=== PATIENT | male | born 1955 | race Caucasian/White ===

== ENCOUNTER 2020-02-28 11:30 | Outpatient (RCR) | payer BC, MEDICARE, SELFPAY | END 2020-03-06 23:59 | LOC: NS 11:30 | PROVIDERS: Visit Provider Student in an Organized Health Care Education/Training Program | DX: Z71.3 Dietary counseling and surveillance (principal); E66.01 Morbid (severe) obesity due to excess calories; Z68.37 Body mass index [BMI] 37.0-37.9, adult; E11.65 Type 2 diabetes mellitus with hyperglycemia | CPT/HCPCS: 97802; 97803 ==

== ENCOUNTER 2020-03-13 11:01 | Outpatient (RCR) | payer BC, MEDICARE, SELFPAY | END 2020-03-13 23:59 | disposition home or self-care (01) | LOC: NS 11:01 | PROVIDERS: Visit Provider Student in an Organized Health Care Education/Training Program | DX: Z71.3 Dietary counseling and surveillance (principal); E66.01 Morbid (severe) obesity due to excess calories; Z68.37 Body mass index [BMI] 37.0-37.9, adult; E11.65 Type 2 diabetes mellitus with hyperglycemia | CPT/HCPCS: 97803 ==

== ENCOUNTER 2022-09-05 14:51 | Observation (INO) | payer BC, MEDICARE, SELFPAY ==
--- NOTE | 2022-08-28 09:11 | RAD_ITS ---
STUDY: X-RAY CHEST REASON FOR EXAM: Male, 67 years old. Preop for hip surgery TECHNIQUE: PA and 2 lateral views of the chest. COMPARISON: None. FINDINGS: The lungs are clear and expanded. There is no demonstrated pleural abnormality. Normal size heart. Normal mediastinum and balbina. Normal visualized pulmonary arteries. Normal visualized aortic arch and descending thoracic aorta. Normal visualized thoracic spine. Normal visualized ribs, clavicles, and shoulders. There is no demonstrated abnormality of the visualized soft tissue structures of the upper abdomen. RAD/Chest PA and Lateral IMPRESSION: No acute pulmonary process Electronically Signed: Ernst Aparicio MD at 11:11 EDT ,
[2022-08-28 10:36] LABS: Partial Thromboplast Time 29.9 Seconds (24.1-36.2); Prothrombin Time (Protime)PT. 13.2 SECONDS (11.7-14.9)
[2022-09-05] VITALS (13 sets, daily range): BP systolic 116–158; BP diastolic 65–143; PULSE 72–100; RESP 16–18; TEMP 36.4–37; O2SAT 92–100; BMI 39.4; BMI 40.6
--- NOTE | 2022-09-05 07:00 | RAD_ITS ---
XR Spine Lumbar 2 or 3 Views INDICATION:67 years old Male presenting with L5-S1 posterior fusion. TECHNIQUE: Fluoroscopic images are submitted from a procedure. Fluoro time: 125.4 seconds Images:8 Cumulative dose: 95.98 mGy FINDINGS: Intraoperative fluoroscopic images of L5-S1 discectomy and posterior spinal fusion. No radiologist was present for this procedure. Please see procedure note for further details. Electronically Signed: Beck Askew MD at 5:37 EDT , RAD/Lumbar Spine 2 or 3 Views IMPRESSION: undefined
[2022-09-05] MEDS: Lactated Ringers 1,000 ML 15 ML IV (07:17)
[2022-09-05 07:26] LABS: Bedside Glucose 148 mg/dL (74-106)
--- NOTE | 2022-09-05 07:37 | OP.PCM_ITS ---
Problems Associated Problem List Diagnoses (1) Lumbar spondylosis: Report of Operation Date of Procedure: 09/05/22 Pre-Operative Diagnosis: 1. Lumbar stenosis L5-S1 with spondylosis 2. Lumbar degenerative disc disease L5-S1 3. Lumbar spondylolisthesis L5-S1 Post-Operative Diagnosis: 1. Lumbar stenosis L5-S1 with spondylosis 2. Lumbar degenerative disc disease L5-S1 3. Lumbar spondylolisthesis L5-S1 Surgery/Procedure Performed:: 1. L5-S1 posterior lumbar interbody fusion 2. Insertion of intervertebral biomechanical device x1 3. Structural allograft for spinal fusion 4. L5 bilateral laminectomies, foraminotomies, facetectomies, decompression of bilateral nerve roots 5. S1 bilateral laminectomies, foraminotomies, facetectomies, decompression of bilateral nerve roots 6. L5-S1 posterolateral fusion 7. Pedicle screw fixation 8. Local autograft for spinal fusion 9. Neuro monitoring bilateral upper and bilateral lower extremities Description of Surgical Findings:: The patient is a 67-year-old male with intractable back and leg pain. Image studies confirm the above diagnoses. He has failed conservative treatments to include medications physical therapy and injections. The patient opted for operative intervention understanding the risk to include but not limited to infection, bleeding, damage to nerves arteries and veins, possibility of spinal fluid leak, nonunion, hardware failure, continued pain, need for further surgery, deep vein thrombosis, pulmonary embolism, heart attack, risk of stroke or . The patient was seen and examined in the preoperative holding area. There he received preoperative IV antibiotics Ancef and was then transferred to the operative suite. Once in the operative suite after general endotracheal anesthesia was established the patient was transferred to the [place] operating table in the prone position. All bony prominences were padded accordingly. The lumbar spine was prepped and draped in a standard surgical fashion. Bear hugger's were not turned on until the drapes were placed and sealed with Ioban. Midline incision was made and taken to the lumbodorsal fascia. The fascia was incised and subperiosteal dissection was taken down to the level of the transverse processes and sacral ala of L5 and S1 bilaterally. Deep retractors were placed. A bone scalpel was used to make cuts in the lamina and then a series of rongeurs and Kerrisons were used removing the spinous process and lamina at L5. Then facetectomies of greater than 50% were performed as well as foraminotomies decompressing the bilateral nerve roots. Given the severity of the stenosis I needed to perform wide bilateral laminectomies and near complete facetectomies in order to decompress the neural elements thus creating instabi lity necessitating the fusion. The dura and nerve roots were retracted medially. A 15 blade scalpel was used to make an annulotomy at L5-S1. Endplate elevators, curettes, and pituitaries were utilized to remove disc material. Endplates were prepared with a rasp. An appropriate sized intervertebral peek cage device measuring 8 mm was packed with morselized cancellous allograft and impacted into position completing the posterior lumbar interbody fusion at the L5-S1 level. Starting points for the screws were found at the junction of the superior articular process and transverse processes and sacral ala of L5 and S1 bilaterally. A power bur was used for the starting point. Pedicle probes were placed bilaterally and then 6.5 x 55 mm screws were placed bilaterally at L5 and 6.5 x 45 mm screws were placed bilaterally at S1. The screws were tested with intraoperative neurophysiologic monitoring and tested within normal limits. Connecting rods were applied and secured with set screws. I then proceeded with the posterior lateral fusion. This was accomplished by decorticating the transverse processes and sacral ala bilaterally at L5 and S1. This decorticated bone was then bridged with local autograft from the decompression as well as morselized cancellous allograft therefore completing the posterior lateral fusion at L5-S1. The incision was thoroughly irrigated. Tisseel was placed over the dura as a hemostatic agent. A deep drain was placed. The fascia was closed with #1 Vicryl, subcutaneous with 2-0 Vicryl and skin with 2-0 nylon. A sterile dressing was applied with 4 x 4's ABD and tape. Sponge instrument needle counts were correct at the end of the case. Neurophysiologic monitoring was maintained at baseline throughout the duration of the case. The patient was extubated and taken to the PACU without incident. Surgeon: Jose Alfredo Arvizu Type of Anesthesia: General Drains: Hemovac Estimated Blood Loss (mL): 1000 cc. Fluids Replaced: 2500 cc. Grafts/Implants Used: Unified spine, talos Complications None Admit VTE Documentation VTE Present on Admission: No
--- NOTE | 2022-09-05 07:37 | PCM.PN.ORT ---
Subjective Subjective The patient was seen and examined postoperatively in the PACU. He is resting comfortably. His pain is controlled. He denies any acute numbness tingling or weakness Objective Data Objective Data Vital Signs: Vital Signs Temp Pulse Resp BP Pulse Ox O2 Del Method 98.6 F 72 16 137/65 H 93 Room Air 09/05/22 07:10 09/05/22 07:10 09/05/22 07:10 09/05/22 07:10 09/05/22 07:10 09/05/22 07:10 Oxygen Delivery Method Room Air Weight: 255 lb 11.779 oz Body Mass Index (BMI) 39.4 Lab / Micro Data Labs: Laboratory Results - last 24 hr 09/05/22 07:06: POC Glucose 148 H Physical Exam Const alert, oriented x3 and no apparent distress General Appearance: cooperative, comfortable and well kempt HEENT normocephalic and head/scalp atraumatic Eyes EOMs intact bilaterally and conjunctivae normal Neck full ROM General: normal visual inspection Chest inspection of chest normal and palpation of chest normal Resp normal respiratory effort and normal air movement Cardio regular rate, regular rhythm and peripheral pulses 2+ throughout GI soft to palpation, non-tender and non-distended Back/Spine Back/Spine Narrative: Dressing clean dry and intact. Drain in place and functioning with small amount of serosanguinous fluid present Cervical Spine: cervical ROM normal Thoracic Spine / Upper Back: normal to inspection Lumbar Spine / Lower Back: normal to inspection Extremity normal to inspection, full ROM, normal capillary refill and no calf tenderness Skin no rashes or lesions noted General Skin Exam: no breakdown Neuro oriented x3, CN's II-XII intact bilaterally, moves all extremities, no focal motor deficits, no sensory deficits noted and deep tendon reflexes 2+ bilaterally Motor Exam: muscle tone normal throughout Assessment & Plan Assessment/Plan (1) Lumbar spondylosis: PLAN: Okay to admit to floor See orders Discharge planning, likely home tomorrow
--- NOTE | 2022-09-05 07:37 | PCM.DC.SUM ---
Providers Date of Admission: 09/05/22 Primary Care Physician: Dr. Giacomo Simmons DO Reason For Visit: LUMBAR 5-SACRAL 1 POSTERIOR LUMBAR INTERBODY FUSIO Medications at Discharge Home Medications amlodipine 5 mg tablet 5 mg PO DAILY 08/27/22 atorvastatin 80 mg tablet 80 mg PO DAILY 08/27/22 dulaglutide 1.5 mg/0.5 mL subcutaneous pen injector (Trulicity) 1.5 mg subcut QWEEK 08/27/22 famotidine 40 mg tablet 40 mg PO DAILY 08/27/22 glipizide 10 mg tablet 10 mg PO DAILY 08/27/22 hydrochlorothiazide 25 mg tablet 25 mg PO DAILY 08/27/22 insulin aspart U-100 100 unit/mL (3 mL) subcutaneous pen (Novolog FlexPen U-100 Insulin aspart) 10 unit subcut .W/ MEALS 08/27/22 insulin detemir U-100 100 unit/mL (3 mL) subcutaneous pen (Levemir FlexPen) 25 unit subcut QHS 08/27/22 losartan 100 mg tablet 100 mg PO DAILY 08/27/22 metformin 500 mg tablet,extended release 24 hr 1,000 mg PO DAILY 08/27/22 pioglitazone 45 mg tablet 45 mg PO DAILY 08/27/22 hydrocodone-acetaminophen 5-325mg 5mg-325mg 1 tab PO Q6H 7 days #28 tabs 09/05/22 Hospital Course Operations - (L5-S1 posterior lumbar interbody fusion, decompression, posterior spinal fusion with instrumentation, use of allograft) Summary of Care Provided Minutes Spent on Discharge: 15 Hospital Course: The patient is a 67-year-old male who underwent an L5-S1 fusion on 09/05/2022. He was subsequently admitted. The hospitalist was consulted for medical management. The patient progressed well. His pain was controlled and he was mobilizing well. His drain was pulled on postoperative day 1. No significant medical issues were reported. He was subsequently discharged home on 09/06/2022 to follow-up with Dr. Arvizu in 3 weeks Physical Exam Const alert, oriented x3 and no apparent distress General Appearance: cooperative, comfortable and well kempt HEENT normocephalic and head/scalp atraumatic Head and Scalp: normal to inspection Eyes EOMs intact bilaterally and conjunctivae normal Neck full ROM General: normal visual inspection Chest inspection of chest normal and palpation of chest normal Resp normal respiratory effort and normal air movement Effort and Inspection: able to speak in complete sentences Cardio regular rate and peripheral pulses 2+ throughout GI soft to palpation, non-tender and non-distended Back/Spine Back/Spine Narrative: Dressing clean dry and intact. Drain pulled. Incision well approximated with interrupted sutures in place. No tenderness erythema drainage or fluctuance Cervical Spine: cervical ROM normal Thoracic Spine / Upper Back: normal to inspection Lumbar Spine / Lower Back: normal to inspection Extremity normal to inspection, full ROM, normal capillary refill and no calf tenderness Skin no rashes or lesions noted General Skin Exam: no breakdown Neuro oriented x3, CN's II-XII intact bilaterally, moves all extremities, no focal motor deficits, no sensory deficits noted and deep tendon reflexes 2+ bilaterally Motor Exam: strength 5/5 throughout and muscle tone normal throughout Weight / BMI Weight Weight: 255 lb 11.779 oz Body Mass Index (BMI) 39.4 ABG / Lab / Microbiology Data Laboratory: Laboratory Results - last 24 hr 09/05/22 07:06: POC Glucose 148 H D/C Instructions Discharge Diet: No restrictions Additional Activity Instructions: Wear back brace at all times. Okay to remove brace to sleep. No repetitive bending twisting or lifting greater than 5 pounds Call your doctor if your incision/area has: Continuous Slow Oozing, Sudden Increased Bleeding, Increased Pain/ Swelling, Increased Redness, Foul Smelling Discharge and Swelling at the incision site Call your doctor if you observe: Fever of 101 or Higher, Coldness, Increased Pain, Numbness or Tingling, Change in Color, Inability to urinate, Inability to have a bowel movement, Using more than 1 pad per hour, Shortness of breath, Dizziness, Fainting spells, Swelling in the ankles, Chest pain, Prolonged hiccupping, Increased palpitations (irregular heartbeat), Calf discomfort and Uncontrolled pain Cleanse incision/area with: Do not get Incision Wet and Keep Dressing Clean & Dry Additional Dressing/Incision Instructions: Change dressing daily with iodine gauze and tape. Use waterproof dressing to shower Additional Instructions: 1. During your procedure, you received sedation through your IV. Please follow these instructions for the next 24 hours: Do not drive a motor vehicle, do not drink any alcoholic beverages, and do not sign any legal documents or make personal or business decisions. A responsible adult should stay with you at least 6 hours after the procedure. 2. Keep your surgical site/incision clean and the dressing dry and intact. You may use an ice pack at the surgical site to reduce any swelling or discomfort. 3. Monitor the incision site for any signs or symptoms of infection. Watch for redness, excessive swelling or drainage, or continued pain at the incision site after 3 days. Contact your physician immediately for a fever, chills or a temperature of 101.5? F or greater. 4. Take your medication exactly as prescribed by your physician. Do not attempt to wean yourself off any of your medications even though your pain is improving. This process needs to be carefully monitored by your doctor. Take any antibiotics prescribed exactly as directed and until they are gone. 5. Avoid stretching, bending, pulling, twisting or any sudden movements. Do not bend or twist at the waist. Wear back brace at all times 6. No lifting greater than 5 pounds. 7. Do not operate a motor vehicle, equipment or a power tool while taking pain medication 8. Do not have any manipulation done by a chiropractor or any other physician without first consulting with the surgeon 9. Please contact our office if you are even scheduled for a CT scan or an MRI. 10. Please call us if you have any questions, problems or concerns. Please Follow Up With: Jose Alfredo Arvizu DO When: 3 weeks Meaningful Use Info Meaningful Use Diagnoses (Choose all that apply): None applicable Discharge Plan Admission Admit Date/Time: 09/05/22 14:51 Attending Provider: Jose Alfredo Arvizu Primary Care Provider: Giacomo Simmons Consulting Providers: Fortino Waldrop Instructions Additional Instructions / Restrictions: 1. During your procedure, you received sedation through your IV. Please follow these instructions for the next 24 hours: Do not drive a motor vehicle, do not drink any alcoholic beverages, and do not sign any legal documents or make personal or business decisions. A responsible adult should stay with you at least 6 hours after the procedure. 2. Keep your surgical site/incision clean and the dressing dry and intact. You may use an ice pack at the surgical site to reduce any swelling or discomfort. 3. Monitor the incision site for any signs or symptoms of infection. Watch for redness, excessive swelling or drainage, or continued pain at the incision site after 3 days. Contact your physician immediately for a fever, chills or a temperature of 101.5? F or greater. 4. Take your medication exactly as prescribed by your physician. Do not attempt to wean yourself off any of your medications even though your pain is improving. This process needs to be carefully monitored by your doctor. Take any antibiotics prescribed exactly as directed and until they are gone. 5. Avoid stretching, bending, pulling, twisting or any sudden movements. Do not bend or twist at the waist. Wear back brace at all times 6. No lifting greater than 5 pounds. 7. Do not operate a motor vehicle, equipment or a power tool while taking pain medication 8. Do not have any manipulation done by a chiropractor or any other physician without first consulting with the surgeon 9. Please contact our office if you are even scheduled for a CT scan or an MRI. 10. Please call us if you have any questions, problems or concerns. Discharge Orders/Prescriptions Prescriptions: New hydrocodone-acetaminophen 5-325 mg tablet 1 tab PO Q6H 7 Days Qty: 28 0RF Continued atorvastatin 80 mg tablet 80 mg PO DAILY glipizide 10 mg tablet 10 mg PO DAILY pioglitazone 45 mg tablet 45 mg PO DAILY amlodipine 5 mg tablet 5 mg PO DAILY hydrochlorothiazide 25 mg tablet 25 mg PO DAILY losartan 100 mg tablet 100 mg PO DAILY metformin 500 mg tablet extended release 24 hr 1,000 mg PO DAILY insulin aspart U-100 [Novolog FlexPen U-100 Insulin] 100 unit/mL (3 mL) insulin pen 10 unit SUBCUT .W/ MEALS Levemir FlexPen 100 unit/mL (3 mL) insulin pen 25 unit SUBCUT QHS Trulicity 1.5 mg/0.5 mL Pen Injector 1.5 mg SUBCUT QWEEK famotidine 40 mg Tablet 40 mg PO DAILY Referrals / Follow Up: Jose Alfredo Arvizu DO [Med Staff - Active Staff] - Giacomo Simmons DO [Primary Care Provider] -
[2022-09-05] MEDS: Cefazolin 2 GM in 0.9% Normal Saline 100 ML IV (08:30)
[2022-09-05] MEDS: Heparin 10,000 UNITS/10 ML Vial 10000 UNITS (08:49)
[2022-09-05] MEDS: THROMBIN (RECOMBINANT) 20,000 UNIT VIAL 20000 UNIT TOPICAL (08:49)
[2022-09-05] MEDS: Bupivacaine 0.25% 30 ML Vial (12:15)
[2022-09-05 13:19] LABS: Bedside Glucose 192 mg/dL (74-106)
[2022-09-05] MEDS: Lactated Ringers 1,000 ML 100 ML IV (13:30)
--- NOTE | 2022-09-05 15:15 | PCM.PN.HOSP ---
Reason for Visit Reason for Visit: Diagnoses Spondylosis without myelopathy or radiculopathy, lumbar region (09/05/22) Encounter for other preprocedural examination (09/05/22) Subjective Subjective Patient was seen and examined today, he returned from surgery today and was seen at the request of spinal surgery for medical management. Patient had an L5-S1 interbody fusion secondary to lumbar stenosis with spondylosis. Patient states he has a history of type 2 diabetes, hypertension, and hyperlipidemia. Patient has no complaints of any shortness of breath or chest discomfort at the time my examination, he has no complaints of back pain at this time also. Objective Data Objective Data Vital Signs: Vital Signs Temp Pulse Resp BP Pulse Ox O2 Del Method O2 Flow Rate 98.2 F 90 18 130/75 H 100 Nasal Cannula 4 09/05/22 14:51 09/05/22 14:51 09/05/22 14:51 09/05/22 14:51 09/05/22 14:51 09/05/22 15:08 09/05/22 15:08 Oxygen Flow Rate (L/min) 4 Oxygen Delivery Method Nasal Cannula Weight: 119.4 kg Body Mass Index (BMI) 40.6 Intake & Output: Intake and Output for Last 24 Hours 09/03/22 09/04/22 09/05/22 23:59 23:59 23:59 Intake Total 3410 / 3410 Output Total 810 / 810 Balance 2600 / 2600 Lab / Micro Data Labs: Laboratory Results - last 24 hr 09/05/22 07:06: POC Glucose 148 H 09/05/22 13:00: POC Glucose 192 H Physical Exam Const alert, oriented x3, no apparent distress and healthy appearing Constitutional Narrative: Patient is morbidly obese General Appearance: cooperative, well kempt and well developed Orientation / Consciousness: awake, oriented to person, oriented to place and oriented to time HEENT normocephalic, head/scalp atraumatic and moist oral mucous membranes Eyes PERRL, EOMs intact bilaterally and conjunctivae normal Neck supple, no JVD, thyroid normal and no carotid bruits General: trachea midline Resp normal respiratory effort, no retractions, no use of accessory muscles and clear to auscultation bilaterally Auscultation: Negative for rales, rhonchi or wheezes Cardio regular rate, regular rhythm, S1 normal heart sound, S2 normal heart sound, no murmurs, no rub and no gallops GI normal to inspection, nondistended, normoactive bowel sounds, soft to palpation, non-tender and non-distended Extremity normal to inspection and no clubbing, cyanosis or edema Skin no rashes or lesions noted General Skin Exam: no breakdown Neuro oriented x3, CN's II-XII intact bilaterally, no focal motor deficits and no sensory deficits noted Sensorium / Orientation: awake, alert, oriented to person, oriented to place and oriented to time Speech: speech normal Psych affect normal Assessment & Plan Assessment/Plan (1) Diabetes: PLAN: Plan 1. Type 2 diabetes-patient's blood sugars will be monitored, sliding scale insulin will be administered per fingerstick blood sugar #2 essential hypertension-patient will remain on his present medication #3 hyperlipidemia-patient is on atorvastatin #4 spinal stenosis L5-S1 with spondylosis-postop day 0 laminectomy with lumbar fusion-PT and OT will be seeing patient Total clinical time spent by myself addressing patient's medical issues, reviewing all of his data, and collaborating with patient's care team: 30 minutes Charges/Coding Visit Charges Office Visits / Consults: 26602 OV L4 Est
[2022-09-05] MEDS: Acetaminophen 500 MG Tablet 1000 MG PO ×2 (15:49→21:31)
[2022-09-05] MEDS: metFORMIN (XR) 500 MG Tablet 1000 MG PO (15:49)
[2022-09-05] MEDS: glipiZIDE 10 MG Tablet PO (15:49)
[2022-09-05] MEDS: Insulin Lispro 100 UNIT/ML INSULN.PEN 10 UNIT SC (16:51)
[2022-09-05] MEDS: Ensure Surgery 237 ML LIQUID PO (16:51)
[2022-09-05] MEDS: Cefazolin 1 GM/50 ML BAG IV (16:51)
[2022-09-05] MEDS: Insulin Lispro 100 UNIT/ML INSULN.PEN SC ×2 (16:51→21:29)
[2022-09-05] MEDS: oxyCODONE 5 MG Tablet PO ×2 (16:53→21:31)
[2022-09-05 17:16] LABS: Bedside Glucose 235 mg/dL (74-106)
[2022-09-05] MEDS: Morphine 4 MG/ML Syringe IV (20:04)
[2022-09-05] MEDS: Insulin Glargine-YFGN 100 UNIT/ML Pen 25 UNIT SC (21:30)
[2022-09-05] MEDS: Atorvastatin Calcium 80 MG Tablet PO (21:31)
[2022-09-05 21:56] LABS: Bedside Glucose 214 mg/dL (74-106)
[2022-09-06] MEDS: Cefazolin 1 GM/50 ML BAG IV (01:20)
[2022-09-06 01:21] VITALS: BP 120/62; PULSE 72; RESP 18; TEMP 36.5; O2SAT 99
[2022-09-06] MEDS: oxyCODONE 5 MG Tablet PO ×3 (01:36→10:58)
[2022-09-06 04:52] VITALS: BP 130/73; PULSE 71; RESP 18; TEMP 36.3; O2SAT 100
[2022-09-06] MEDS: Famotidine 20 MG Tablet 40 MG PO (04:59)
[2022-09-06] MEDS: Acetaminophen 500 MG Tablet 1000 MG PO (06:38)
[2022-09-06 07:08] LABS: Bedside Glucose 127 mg/dL (74-106)
[2022-09-06 08:05] VITALS: BP 130/70; PULSE 75; RESP 18; TEMP 36.5; O2SAT 96
[2022-09-06 08:08] LABS: Absolute Lymphocyte Count 1.08 X10^3/uL (0.83-4.51); Absolute Neutrophil Count 8.6 X10^3/uL (2.0-7.7); Basophil# 0.01 X10^3/uL; Basophil% 0.1 % (0-1); Eosinophil# 0.01 X10^3/uL; Eosinophils% 0.1 % (0-5); Hematocrit 33.3 % (40-54); Hemoglobin 10.8 g/dL (13.0-16.5); Lymphocyte # 1.08 X10^3/ul (0.83-4.51); Lymphocyte % 10.2 % (19-41); Mean Corp Hgb Conc 32.4 g/dL (32-36); Mean Corpuscular Hgb 30.7 pg (27.0-32.0); Mean Corpuscular Volume 94.6 fL (80-94); Mean Platelet Vol. 10.7 fl (6.2-12.0); Monocyte# 0.87 X10^3/uL; Monocyte% 8.2 % (0-10); NRBC Flagged by Analyzer 0 % (0-5); Neutrophil # 8.57 X10^3/uL (2.7-7.7); Platelet Count 189 K/mm3 (150-450); RBC Distribution Width CV 13.4 % (11.6-14.6); RBC Distribution Width SD 46.1 fl (35.1-43.9); Red Blood Count 3.52 M/mm3 (4.6-6.2); White Blood Count 10.6 K/mm3 (4.4-11.0)
[2022-09-06 08:40] LABS: Anion Gap 6 (5-15); BUN 18 mg/dL (7-18); BUN/Creat Ratio 23.5 RATIO (10-20); Calcium,Total 8.7 mg/dL (8.5-10.1); Chloride 105 mmol/L (98-107); Creatinine, Serum 0.76 mg/dL (0.70-1.30); EST Glomerular Filtration Rate 107 mL/min (>60); Est Glom Filt Rate - Afr Amer 130 mL/min (>60); Estimated Creatinine Clearance 65.18 ml/min; Glucose 143 mg/dL (74-106); Potassium 3.9 mmol/L (3.5-5.1); Sodium Level 138 mmol/L (136-145)
--- NOTE | 2022-09-06 08:56 | PN.HOSP_ITS ---
Subjective Subjective Doing well, pain is controlled. No issues overnight Objective Data Objective Data Vital Signs: Vital Signs Temp Pulse Resp BP Pulse Ox O2 Del Method O2 Flow Rate 97.4 F L 71 18 130/73 H 100 Nasal Cannula 2 09/06/22 04:52 09/06/22 04:52 09/06/22 04:52 09/06/22 04:52 09/06/22 04:52 09/06/22 04:52 09/06/22 04:52 Oxygen Flow Rate (L/min) 2 Oxygen Delivery Method Nasal Cannula Weight: 263 lb 3.711 oz Body Mass Index (BMI) 40.6 Intake & Output: Intake and Output for Last 24 Hours 09/05/22 09/06/22 09/07/22 03:59 03:59 03:59 Intake Total 4548.33 / 4548.33 656.75 / 656.75 Output Total 1999 1360 / 1360 Balance 2548.33 / 2548.33 -703.25 / -703.25 Lab / Micro Data Result Diagrams: 09/06/22 07:56 09/06/22 07:56 Labs: Laboratory Results - last 24 hr 09/05/22 13:00: POC Glucose 192 H 09/05/22 16:50: POC Glucose 235 H 09/05/22 21:28: POC Glucose 214 H 09/06/22 06:32: POC Glucose 127 H 09/06/22 07:56: WBC 10.6, RBC 3.52 L, Hgb 10.8 L, Hct 33.3 L, MCV 94.6 H, MCH 30.7, MCHC 32.4, RDW Std Deviation 46.1 H, RDW Coeff of Jamil 13.4, Plt Count 189, MPV 10.7, Immature Gran % (Auto) 0.400, Neut % (Auto) 81.0 H, Lymph % (Auto) 10.2 L, [place] % (Auto) 8.2, Eos % (Auto) 0.1, Baso % (Auto) 0.1, Absolute Neuts (auto) 8.6 H, Absolute Lymphs (auto) 1.08, Nucleated RBC % 0 09/06/22 07:56: Sodium 138, Potassium 3.9, Chloride 105, Carbon Dioxide 27.0, Anion Gap 6, BUN 18, Creatinine 0.76, Estim Creat Clear Calc 65.18, Est GFR (MDRD) Af Amer 130, Est GFR (MDRD) Non-Af 107, BUN/Creatinine Ratio 23.5 H, Glucose 143 H, Calcium 8.7 Radiography Diagnostic Testing: Radiology Impression Lumbar Spine X-Ray 09/05/22 07:00 IMPRESSION: undefined Physical Exam Narrative General: Alert, Oriented x3, Cooperative, No apparent distress HEENT: Atraumatic, PERRLA, EOMI, Normocephalic Oral: Moist Mucosa Neck: Supple, No JVD Lungs: Clear to auscultation, Normal air movement, No rhonchi, No wheeze, No rales Cardiovascular: Regular rate, Regular Rhythm, Normal S1, Normal S2, No murmurs Abdomen: Soft, Non Tender, Non-Distended, No Hepato-splenomegaly Extremities: No edema, Capillary Refill Less than 3 Seconds Skin: No rashes, No breakdown Musculoskeletal: No Tenderness to Palpation of Joints or Extremities Neurological: Cranial nerves II-XII grossly intact, Motor Exam 5/5 strength throughout, Sensory exam intact to light touch and pain Psych/Mental Status: Normal Affect, Appropriate Assessment & Plan Assessment/Plan (1) Diabetes: PLAN: Plan 1. Type 2 diabetes ? Patient's blood sugars will be monitored, sliding scale insulin will be administered per fingerstick blood sugar ? Blood sugars are stable #2 essential hypertension ? Patient will remain on his present medication ? Blood pressures are stable #3 hyperlipidemia ? Patient is on atorvastatin #4 spinal stenosis L5-S1 with spondylosis status post laminectomy with lumbar fusion 09/05/2022 ? PT and OT will be seeing patient ? Pain management per primary ? All lab work is normal can resume all of his home medications ? He is medically stable for discharge we will sign off DVT: Per primary Charges/Coding Visit Charges Inpatient E&M: 96242 Subs Hosp L2
--- NOTE | 2022-09-06 09:28 | CASEMGMT ---
Addendum entered by Viky Amaya 09/06/22 12:09: TC to [facility] to confirm receipt of referral for FWW, per Brannon she will work on this and deliver to the hospital. Addendum entered by Viky Amaya 09/06/22 10:35: Received notification that Nicole does not have FWW. Referral sent to [facility] at this time via careport. Original Note: MITCHEL CORNELL Assessment: Face to Face with pt for initial transition planning/care coordination assessment. MITCHEL CORNELL introduced self and role at [facility], pt voices understanding and consents to assessment. Pt is A/O x4 and answers all questions appropriately at this time. Pt sitting up in chair in no distress. Care providers, pharmacy, and demographics verified/updated. Admitting Dx: lumbar 5 sacral 1 posterior lumbar interbody fusion PCP:Troy Specialists:cameron Arvizu; cameron Steele Preferred Pharmacy: [facility] Insurance: Backpack Prescription Benefit: yes LNOK: Sophia Villanueva, Living Arrangements: Pt lives with in a two story home with 2 steps to enter without a rail. Pt reports he was I in ADL's prior to surgery. Pt denies concerns at home. Transportation: Pt drives self and denies concerns with transportation. Pt and sons able to transport pt to medical appts until he can drive again. DME/HHC/SNF: Pt has a cane at home and B[facility] with sufficient supplies. Pt had a walker but states he got rid of it. Pt is in need of a FWW. Provided pt with a verbal local in network list of DME companies, pt has no preference. Pt denies hx of HHC or SNF stays. Pt states no concerns with going home at time of dc. Pt able to assist him. Pt states no further concerns/needs. CM to follow. Advised pt to ask CM if any further question/concerns/needs arise, voices understanding. Pt Goal: Home Plan: Home
[2022-09-06] MEDS: amLODIPine 5 MG Tablet PO (09:36)
[2022-09-06] MEDS: glipiZIDE 10 MG Tablet PO (09:36)
[2022-09-06] MEDS: Pioglitazone Hydrochloride 45 MG Tablet PO (09:36)
[2022-09-06] MEDS: hydroCHLOROthiazide 25 MG Tablet PO (09:36)
[2022-09-06] MEDS: Losartan Potassium 100 MG Tablet PO (09:36)
[2022-09-06] MEDS: metFORMIN (XR) 500 MG Tablet 1000 MG PO (09:36)
[2022-09-06] MEDS: Insulin Lispro 100 UNIT/ML INSULN.PEN 10 UNIT SC ×2 (09:37→11:25)
--- NOTE | 2022-09-06 10:46 | PHA.DC.MC ---
Pharmacy Service has performed discharge medication reconciliation and counseling for this patient. The patient was counseled on the following discharge medications and changes in medications for homegoing were reviewed. 1. NORCO The Reason for Use, instructions for use, and potential side effects were reviewed for all new medications. The patient's questions regarding all of their medications were answered. The patient was able to verbally demonstrate an understanding of their discharge medications. Home Medications amlodipine 5 mg tablet 5 mg PO DAILY 08/27/22 atorvastatin 80 mg tablet 80 mg PO DAILY 08/27/22 dulaglutide 1.5 mg/0.5 mL subcutaneous pen injector (Trulicity) 1.5 mg subcut QWEEK 08/27/22 famotidine 40 mg tablet 40 mg PO DAILY 08/27/22 glipizide 10 mg tablet 10 mg PO DAILY 08/27/22 hydrochlorothiazide 25 mg tablet 25 mg PO DAILY 08/27/22 insulin aspart U-100 100 unit/mL (3 mL) subcutaneous pen (Novolog FlexPen U-100 Insulin aspart) 10 unit subcut .W/ MEALS 08/27/22 insulin detemir U-100 100 unit/mL (3 mL) subcutaneous pen (Levemir FlexPen) 25 unit subcut QHS 08/27/22 losartan 100 mg tablet 100 mg PO DAILY 08/27/22 metformin 500 mg tablet,extended release 24 hr 1,000 mg PO DAILY 08/27/22 pioglitazone 45 mg tablet 45 mg PO DAILY 08/27/22 hydrocodone-acetaminophen 5-325mg 5mg-325mg 1 tab PO Q6H 7 days #28 tabs 09/05/22 The patient's discharge medication list was reviewed for discrepancies and discrepancies were resolved. Counselled by Santiago Hill, LeannaD Candidate
[2022-09-06] MEDS: Insulin Lispro 100 UNIT/ML INSULN.PEN SC (11:25)
[2022-09-06 11:47] LABS: Bedside Glucose 227 mg/dL (74-106)
[2022-09-06 13:57] VITALS: BP 134/67; PULSE 68; RESP 18; TEMP 36.7; O2SAT 96
== END 2022-09-06 13:56 | disposition home or self-care (01) ==
LOC: MS3 15:40
PROVIDERS: Family Medicine; Admitting Provider Orthopaedic Surgery; Referring Provider Orthopaedic Surgery; Visit Provider Orthopaedic Surgery
PROC: 0SG00AJ Fusion of Lumbar Vertebral Joint with Interbody Fusion Device, Posterior Approach, Anterior Column, Open Approach (ICD-10-PCS; CPT 22630; principal; 2022-09-05 07:30)
DX: M47.816 Spondylosis without myelopathy or radiculopathy, lumbar region (principal); Z79.4 Long term (current) use of insulin; E11.9 Type 2 diabetes mellitus without complications; M48.061 Spinal stenosis, lumbar region without neurogenic claudication; M47.817 Spondylosis without myelopathy or radiculopathy, lumbosacral region; M51.36 Other intervertebral disc degeneration, lumbar region; M43.16 Spondylolisthesis, lumbar region; Z79.899 Other long term (current) drug therapy; Z79.84 Long term (current) use of oral hypoglycemic drugs; I10 Essential (primary) hypertension; E78.00 Pure hypercholesterolemia, unspecified; G47.33 Obstructive sleep apnea (adult) (pediatric); Z87.891 Personal history of nicotine dependence
CPT/HCPCS: 22633; 63052; 63053; 20930; 20936; 22853; 22842; 00670; 36415; 71046; 72100; 76000; 80048; 82962; 85025; 85610; 85730; 94668; 96361; 96374; 97162; 99221; C1713; J7120; G0378; J2405

== ENCOUNTER 2022-09-07 01:12 | Emergency (ER) | payer BC, MEDICARE, SELFPAY ==
[2022-09-07 01:17] VITALS: BP 141/58; PULSE 90; RESP 18; TEMP 36.7; O2SAT 99; BMI 40.1
[2022-09-07] MEDS: Ondansetron 4 MG/2 ML Vial IV (01:51)
[2022-09-07] MEDS: Morphine 4 MG/ML Syringe IV (01:51)
[2022-09-07 02:01] LABS: Absolute Lymphocyte Count 1.34 X10^3/uL (0.83-4.51); Absolute Neutrophil Count 5.6 X10^3/uL (2.0-7.7); Basophil# 0.02 X10^3/uL; Basophil% 0.2 % (0-1); Eosinophil# 0.08 X10^3/uL; Hematocrit 29.5 % (40-54); Hemoglobin 9.6 g/dL (13.0-16.5); Lymphocyte # 1.34 X10^3/ul (0.83-4.51); Lymphocyte % 16.5 % (19-41); Mean Corp Hgb Conc 32.5 g/dL (32-36); Mean Corpuscular Hgb 30.8 pg (27.0-32.0); Mean Corpuscular Volume 94.6 fL (80-94); Mean Platelet Vol. 10.6 fl (6.2-12.0); Monocyte# 1.04 X10^3/uL; Monocyte% 12.8 % (0-10); NRBC Flagged by Analyzer 0 % (0-5); Neutrophil # 5.61 X10^3/uL (2.7-7.7); Platelet Count 160 K/mm3 (150-450); RBC Distribution Width CV 13.5 % (11.6-14.6); Red Blood Count 3.12 M/mm3 (4.6-6.2); White Blood Count 8.1 K/mm3 (4.4-11.0)
--- NOTE | 2022-09-07 02:05 | RAD_ITS ---
EXAM: XR CHEST, 1 VIEW CLINICAL INDICATION: fever TECHNIQUE: Frontal view of the chest. COMPARISON: No relevant prior studies available. FINDINGS: LUNGS AND PLEURAL SPACES: Dense opacity in the retrocardiac region of the left globe. Lung volumes are low bilaterally. Elevated right hemidiaphragm. Low lung volumes with subsegmental atelectasis at the lung bases. No pneumothorax. No effusion. HEART: Unremarkable. Cardiac silhouette not enlarged. MEDIASTINUM: Central airways and mediastinal contour are unremarkable. BONES/JOINTS: Degenerative changes of the spine and acromioclavicular joints. Degenerative changes of the glenohumeral joints. SOFT TISSUES: Unremarkable. VASCULATURE: Atherosclerotic calcifications of the nonenlarged thoracic aortic arch. RAD/Chest 1 View (Portable) IMPRESSION: Focal atelectasis versus infiltrate involving the retrocardiac region of the left lower lobe. Lateral view could be useful. Electronically Signed: Calvin Nair MD at 2:41 EDT ,
[2022-09-07 02:14] LABS: Anion Gap 4 (5-15); BUN 27 mg/dL (7-18); BUN/Creat Ratio 27.9 RATIO (10-20); Calcium,Total 8.4 mg/dL (8.5-10.1); Chloride 104 mmol/L (98-107); Creatinine, Serum 0.97 mg/dL (0.70-1.30); EST Glomerular Filtration Rate 82 mL/min (>60); Est Glom Filt Rate - Afr Amer 99 mL/min (>60); Estimated Creatinine Clearance 69.54 ml/min; Glucose 147 mg/dL (74-106); Potassium 3.8 mmol/L (3.5-5.1); Sodium Level 138 mmol/L (136-145)
[2022-09-07 02:19] VITALS: BP 113/58; PULSE 75; RESP 17; TEMP 36.8; O2SAT 99
[2022-09-07 02:26] LABS: Bacteria 0 SEEN /hpf (None Seen); Mucous, Urine 0 SEEN /hpf (<or=2+); Red Blood Cells-Urine 0 SEEN /hpf (0-5); Squamous Epithelial Cells - UA 0 SEEN /hpf (0-5); White Blood Cells 0 SEEN /hpf (0-5)
[2022-09-07 02:27] LABS: Glucose, Dipstick Normal (Normal); Ketone-Dipstick Negative (Negative); Leukocyte Esterase-Dipstick Negative /ul (Negative); Nitrite-Dipstick Negative (Negative); Occult Blood-Urine Negative /ul (Negative); Protein-Dipstick Negative (Negative); Urine Bilirubin Dipstick Negative (Negative); Urine Urobilinogen Normal (Normal)
[2022-09-07 02:30] LABS: Procalcitonin 0.18 ng/mL (0.00-0.09)
[2022-09-07 02:41] LABS: Lactic Acid 1.1 mmol/L (0.4-1.9)
[2022-09-07 02:42] LABS: Color, Urine Yellow (Yellow); Urine Clarity Clear (Clear)
--- NOTE | 2022-09-07 03:57 | EX.ED.DYSGE1 ---
HPI History of Present Illness Chief Complaint: Fever Informant: patient and spouse/S.O. Narrative Narrative: Patient is a 67-year-old male with past medical history of diabetes and lumbar spondylosis who underwent a lumbar fusion on . He states this evening he had increased pain and felt subjective fevers and chills. He did not take his temperature but based on his increased pain and sensation of developing a fever there was concern for infection so patient presents for evaluation. He denies any loss of bowel or bladder control or IV drug use. He states there is no dysuria or hematuria. He denies any cough congestion nausea vomiting or diarrhea [facility] Medical History (Updated 09/07/22 @ 04:[address] Calvin Stark, DO) Arthritis Back pain Cancer Diabetes Former smoker Gastric reflux High cholesterol History of diverticulitis History of edema History of GI bleed History of pain when walking History of stress test Hypertension Injury of head and neck Insulin dependent diabetes mellitus Marijuana use Wears glasses Home Medications amlodipine 5 mg tablet 5 mg PO DAILY 08/27/22 [History Last Taken 09/04/22] atorvastatin 80 mg tablet 80 mg PO DAILY 08/27/22 [History Last Taken 09/04/22] dulaglutide 1.5 mg/0.5 mL subcutaneous pen injector (Trulicity) 1.5 mg subcut QWEEK 08/27/22 [History Last Taken 09/04/22] famotidine 40 mg tablet 40 mg PO DAILY 08/27/22 [History Last Taken 09/04/22] glipizide 10 mg tablet 10 mg PO DAILY 08/27/22 [History Last Taken 09/04/22] hydrochlorothiazide 25 mg tablet 25 mg PO DAILY 08/27/22 [History Last Taken 09/04/22] insulin aspart U-100 100 unit/mL (3 mL) subcutaneous pen (Novolog FlexPen U-100 Insulin aspart) 10 unit subcut .W/ MEALS 08/27/22 [History Last Taken 09/04/22] insulin detemir U-100 100 unit/mL (3 mL) subcutaneous pen (Levemir FlexPen) 25 unit subcut QHS 08/27/22 [History Last Taken 09/04/22] losartan 100 mg tablet 100 mg PO DAILY 08/27/22 [History Last Taken 09/04/22] metformin 500 mg tablet,extended release 24 hr 1,000 mg PO DAILY 08/27/22 [History Last Taken 09/04/22] pioglitazone 45 mg tablet 45 mg PO DAILY 08/27/22 [History Last Taken 09/04/22] hydrocodone-acetaminophen 5-325mg 5mg-325mg 1 tab PO Q6H 7 days #28 tabs 09/05/22 [Rx Last Taken Unknown] gabapentin 100 mg capsule 100 mg PO BID PRN pain #30 caps 09/07/22 [Rx Last Taken Unknown] oxycodone-acetaminophen 5 mg-325 mg tablet (Percocet) 1 tab PO Q6H PRN pain 3 days #12 tabs 09/07/22 [Rx Last Taken Unknown] Allergy/AdvReac Type Severity Reaction Status Date / Time lisinopril Allergy Other Verified 09/07/22 01:16 tetracycline Allergy Rash Verified 09/07/22 01:16 acetaminophen [From Vicodin] AdvReac Other Verified 09/07/22 01:16 hydrocodone [From Vicodin] AdvReac Other Verified 09/07/22 01:16 Surgical History History of cardiac catheterization History of total bilateral knee replacement (TKR) Hx of bilateral cataract extraction Hx of surgical procedure Hx of surgical procedure Hx of umbilical hernia repair Social History Smoking Status: Former smoker ROS ROS ED Constitutional Constitutional ED: Reports chills, fever(s) and subjective Eyes Eyes: Denies change in vision ENT ENT ED: Denies rhinorrhea or sore throat Cardiovascular Cardiovascular: Denies chest pain Respiratory/Chest Respiratory/Chest: Denies cough or dyspnea Gastrointestinal Gastrointestinal: Denies abdominal pain, diarrhea, nausea or vomiting Genitourinary Genitourinary ED: Denies dysuria or hematuria Musculoskeletal Musculoskeletal: Reports back pain Integumentary Denies rash Neurologic Neurologic: Denies headache(s), paresthesias or weakness Hematologic/Lymphatic Hematologic/Lymphatic: Denies easy bleeding or easy bruising EXAM Physical Exam Const Vital Signs: 09/07/22 01:17 09/07/22 02:19 09/07/22 04:30 Temperature 98.1 F 98.2 F 98.6 F Temperature Source Oral Oral Pulse Rate 90 75 69 Respiratory Rate 18 17 17 Blood Pressure 141/58 H 113/58 L 119/79 Blood Pressure Mean 85 76 Pulse Ox 99 99 92 Oxygen Delivery Method Room Air Room Air Positive well nourished and well developed General Appearance ED: well developed HEENT Reports moist mucous membranes HEENT Narrative: No signs of infection in the posterior pharynx no airway edema or compromise Eyes PERRL and EOMs intact bilaterally General Eye ED: Negative for scleral icterus Neck supple Neck Narrative: No nuchal rigidity or meningeal signs noted Chest Wall palpation of chest normal Resp normal respiratory effort and clear to auscultation bilaterally Resp Narrative: Breath sounds are diminished throughout but overall clear to auscultation with no nasal flaring retractions tachypnea or accessory muscle use Cardio regular rate and regular rhythm Rate: other Other Details: Radial pulses are plus 2 out of 4 bilaterally are equal and symmetric GI non-tender and non-distended GI Narrative: Abdomen is soft nontender nondistended with hypoactive bowel sounds no voluntary guarding or rigidity no pulsatile mass Auscultation: hypoactive bowel sounds Palpation: soft Back/Spine Back/Spine Narrative: Patient has a surgical incision over top of his lumbar spine consistent with recent fusion. There is slight drainage of serosanguineous fluid but overall the wound is clean dry and intact without secondary surrounding soft tissue changes to suggest infection Extremity normal to inspection Neuro oriented x3, CN's II-XII intact bilaterally and no sensory deficits noted Sensorium / Orientation: alert Psych mental status grossly normal Skin no rashes or lesions noted MDM MDM MDM Narrative Medical decision making narrative: Patient presented to the ER afebrile. As he had recent surgery reported subjective fevers and chills there is concern he developed a infection such as a postsurgical wound infection pneumonia or urinary tract infection. Secondary to this basic blood work and imaging were obtained. Chest x-ray question atelectasis versus developing infiltrate but the patient does not have a true documented fever his white count is normal his lactic acid is normal and he is not coughing or short of breath and therefore this is not clinically correlate. Urine showed no signs of blood or infection as well. Patient was given morphine and had improvement of his pain. He is not tachycardic and he is not hypoxic and he is not chest pain with inspiration therefore my concern for a postoperative PE is low and do not feel the need for CTA. At this time as work-up is revealing no acute infectious process and patient has no signs of secondary infection from the surgery there is no need for further work-up and he is otherwise safe for discharge History & Record Review Discussion w/independent historian: Patient and Significant other Lab Data Attestation: I reviewed the patient's lab results. Labs: Laboratory Results - last 24 hr 09/07/22 09/07/22 09/07/22 01:55 01:55 01:55 WBC 8.1 RBC 3.12 L Hgb 9.6 L Hct 29.5 L MCV 94.6 H MCH 30.8 MCHC 32.5 RDW Std Deviation 47.0 H RDW Coeff of Jamil 13.5 Plt Count 160 MPV 10.6 Immature Gran % (Auto) 0.500 Neut % (Auto) 69.0 Lymph % (Auto) 16.5 L [place] % (Auto) 12.8 H Eos % (Auto) 1.0 Baso % (Auto) 0.2 Absolute Neuts (auto) 5.6 Absolute Lymphs (auto) 1.34 Nucleated RBC % 0 Sodium 138 Potassium 3.8 Chloride 104 Carbon Dioxide 30.0 Anion Gap 4 L BUN 27 H Creatinine 0.97 Estim Creat Clear Calc 69.54 Est GFR (MDRD) Af Amer 99 Est GFR (MDRD) Non-Af 82 BUN/Creatinine Ratio 27.9 H Glucose 147 H Lactic Acid 1.1 Calcium 8.4 L Procalcitonin Urine Color Urine Clarity Urine pH Ur Specific [place] Urine Protein Urine Glucose (UA) Urine Ketones Urine Occult Blood Urine Nitrite Urine Bilirubin Urine Urobilinogen Ur Leukocyte Esterase Urine RBC Urine WBC Ur Squamous Epith Cells Urine Bacteria Urine Mucus 09/07/22 09/07/22 01:55 02:21 WBC RBC Hgb Hct MCV MCH MCHC RDW Std Deviation RDW Coeff of Jamil Plt Count MPV Immature Gran % (Auto) Neut % (Auto) Lymph % (Auto) [place] % (Auto) Eos % (Auto) Baso % (Auto) Absolute Neuts (auto) Absolute Lymphs (auto) Nucleated RBC % Sodium Potassium Chloride Carbon Dioxide Anion Gap BUN Creatinine Estim Creat Clear Calc Est GFR (MDRD) Af Amer Est GFR (MDRD) Non-Af BUN/Creatinine Ratio Glucose Lactic Acid Calcium Procalcitonin 0.18 H Urine Color Yellow Urine Clarity Clear Urine pH 6.0 Ur Specific [place] 1.010 Urine Protein Negative Urine Glucose (UA) Normal Urine Ketones Negative Urine Occult Blood Negative Urine Nitrite Negative Urine Bilirubin Negative Urine Urobilinogen Normal Ur Leukocyte Esterase Negative Urine RBC 0 SEEN Urine WBC 0 SEEN Ur Squamous Epith Cells 0 SEEN Urine Bacteria 0 SEEN Urine Mucus 0 SEEN Radiography Diagnostic Testing: Clinical Impression(s) from Imaging Studies Chest X-Ray 09/07/22 02:05 IMPRESSION: Focal atelectasis versus infiltrate involving the retrocardiac region of the left lower lobe. Lateral view could be useful. Electronically Signed: Calvin Nair MD at 2:41 EDT , Chest x-ray as interpreted by the emergency medicine physician reveals hazy opacity in the retrocardiac region suggestive of atelectasis versus infiltrate Discharge Plan Triage Chief Complaint: Fever ED Provider: Calvin Stark Dx/Rx/DC Orders Clinical Impression: Post-operative pain, Lumbar spondylosis, Diabetes Instructions: Pain Management After Surgery Prescriptions: New gabapentin 100 mg capsule 100 mg PO BID PRN (Reason: pain) Qty: 30 0RF oxycodone-acetaminophen [Percocet] 5-325 mg tablet 1 tab PO Q6H PRN (Reason: pain) 3 Days Qty: 12 0RF No Action atorvastatin 80 mg tablet 80 mg PO DAILY glipizide 10 mg tablet 10 mg PO DAILY pioglitazone 45 mg tablet 45 mg PO DAILY amlodipine 5 mg tablet 5 mg PO DAILY hydrochlorothiazide 25 mg tablet 25 mg PO DAILY losartan 100 mg tablet 100 mg PO DAILY metformin 500 mg tablet extended release 24 hr 1,000 mg PO DAILY insulin aspart U-100 [Novolog FlexPen U-100 Insulin] 100 unit/mL (3 mL) insulin pen 10 unit SUBCUT .W/ MEALS Levemir FlexPen 100 unit/mL (3 mL) insulin pen 25 unit SUBCUT QHS Trulicity 1.5 mg/0.5 mL Pen Injector 1.5 mg SUBCUT QWEEK famotidine 40 mg Tablet 40 mg PO DAILY hydrocodone-acetaminophen 5-325 mg tablet 1 tab PO Q6H 7 Days Qty: 28 0RF Primary Care Provider: Giacomo Simmons Referrals: Giacomo Simmons DO [Primary Care Provider] - Activity Restrictions/Additional Instructions: Please stop the [place]/hydrocodone as it is causing hiccups. Try taking gabapentin and Percocet/oxycodone for improved pain control. Your work-up today shows no obvious signs of infection therefore continue to monitor yourself at home and if you develop a fever over 100.4 or have any further concerns please return for repeat evaluation Disposition Disposition: Home, Self Care
[2022-09-07 04:30] VITALS: BP 119/79; PULSE 69; RESP 17; TEMP 37; O2SAT 92
[2022-09-07] MEDS: ChlorproMAZINE 50 MG/2 ML Ampul 25 MG IV (04:39)
[2022-09-07] MEDS: oxyCODONE 5 MG Tablet 10 MG PO (04:48)
[2022-09-07] MEDS: Gabapentin 100 MG Capsule PO (04:50)
== END 2022-09-07 04:56 | disposition home or self-care (01) ==
PROVIDERS: Emergency Provider Emergency Medicine; Visit Provider Emergency Medicine
DX: R50.9 Fever, unspecified (principal); Z79.4 Long term (current) use of insulin; E11.9 Type 2 diabetes mellitus without complications; G89.18 Other acute postprocedural pain; Z87.891 Personal history of nicotine dependence; M47.816 Spondylosis without myelopathy or radiculopathy, lumbar region; I10 Essential (primary) hypertension; E78.00 Pure hypercholesterolemia, unspecified; Z79.85 Long-term (current) use of injectable non-insulin antidiabetic drugs; Z79.84 Long term (current) use of oral hypoglycemic drugs; Z96.653 Presence of artificial knee joint, bilateral
CPT/HCPCS: 71045; 80048; 81001; 83605; 84145; 85025; 96374; 96375; 99283; A4216; J2405